=== PATIENT | female | born 1935 | race Caucasian/White ===

== ENCOUNTER 2018-01-02 17:58 | Inpatient (IN) | payer OTHER, MEDICARE ==
[2018-01-02 18:18] VITALS: BMI 25.8
[2018-01-02 19:37] LABS: BASO % 0.3 % (0-2.0); HEMATOCRIT 42.6 % (32.4-45.2); HEMOGLOBIN 14.1 GM/dL (10.7-15.3); LYMPH % 2.7 % (8-40); MCH 30.2 pg (25.7-33.7); MCHC 33.1 g/dl (32.0-36.0); MEAN CELL VOLUME 91.3 fl (80-96); MEAN PLT VOLUME 8.5 fl (7.5-11.1); PLATELET COUNT 199 K/MM3 (134-434); RBC 4.66 M/mm3 (3.60-5.2); RDW 14.6 % (11.6-15.6); WHITE BLOOD COUNT 23.2 K/mm3 (4.0-10.0)
[2018-01-02 19:43] LABS: VENOUS PC02 26.8 mmHg (38-52); VENOUS PH 7.47 (7.32-7.42); VENOUS PO2 45.1 mmHg (28-48)
[2018-01-02 19:49] LABS: INR 1.48 (0.82-1.09); PROTHROMBIN TIME (PATIENT) 16.7 SEC (9.98-11.88)
[2018-01-02 19:52] LABS: ACTIVATED PTT 22.7 SECONDS (26.9-34.4)
[2018-01-02 19:57] LABS: URINE APPEARANCE SLCLOUDY; URINE BILIRUBIN NEGATIVE (<2.0 mg/dL); URINE COLOR YELLOW; URINE GLUCOSE (UA) NEGATIVE (NEGATIVE); URINE KETONE NEGATIVE (NEGATIVE); URINE LEUK ESTERASE NEGATIVE (NEGATIVE); URINE NITRITE NEGATIVE (NEGATIVE); URINE PROTEIN NEGATIVE (NEGATIVE); URINE UROBILINOGEN NEGATIVE mg/dL (0.2-1.0)
[2018-01-02 20:00] LABS: ALBUMIN 2.9 g/dl (3.4-5.0); ALK PHOS 105 U/L (45-117); ANION GAP 9 (8-16); BLOOD UREA NITROGEN 40 mg/dL (7-18); CALCIUM 9.2 mg/dL (8.5-10.1); CHLORIDE 103 mmol/L (98-107); CO2 27 mmol/L (21-32); CREATININE 1.2 mg/dL (0.55-1.02); GLUCOSE,RANDOM 92 mg/dL (74-106); POTASSIUM 3.8 mmol/L (3.5-5.1); SGOT/AST 25 U/L (15-37); SGPT/ALT 43 U/L (12-78); SODIUM 139 mmol/L (136-145); TOT PROT 6.8 g/dl (6.4-8.2)
[2018-01-02] MEDS ORDERED: SODIUM CHLORIDE 0.9% 500 ML INFUS.BAG IV ONE (20:00)
[2018-01-02] MEDS ORDERED: PIPERACILLIN/TAZOB 4.5 GM 4.5 GM in DEXTROSE 5%-WATER 100 ML IVPB ONE (20:08)
[2018-01-02] MEDS ORDERED: VANCOMYCIN 1,000 MG in DEXTROSE 5%-WATER - 250 ML IVPB ONE (20:09)
[2018-01-02] MEDS ORDERED: dilTIAZem HCL 50 MG/10 ML - 10 ML VIAL IVPUSH ONE ×2 (20:11→20:35)
[2018-01-02] MEDS ORDERED: ACETAMINOPHEN INJECTION 100 ML IVPB ONE (20:16)
[2018-01-02] MEDS ORDERED: dilTIAZem HCL 125 MG/25 ML - 25 ML VIAL ONE ×2 (20:16→23:45)
[2018-01-02] MEDS ORDERED: ACETAMINOPHEN 1000 MG/100 ML VIAL (NON FORMULARY) IVPB ONE (20:21)
--- NOTE | 2018-01-02 20:44 | PDOC ---
History of Present Illness - General Chief Complaint: SIRS, Suspected/Possible Stated Complaint: SEPSIS Time Seen by Provider: 01/02/18 18:16 Past History - Past Medical History Allergies/Adverse Reactions: Allergies Allergy/AdvReac Type Severity Reaction Status Date / Time Sulfa (Sulfonamide Allergy Verified 01/02/18 18:06 Antibiotics) Home Medications: Ambulatory Orders Aricept 10 mg PO DAILY 05/29/17 Aspirin [Aspirin EC] 81 mg PO DAILY 05/29/17 Citalopram Hydrobromide [Celexa -] 10 mg PO DAILY 05/29/17 Furosemide [Lasix] 20 mg PO DAILY 05/29/17 Insulin Aspart [Novolog] 100 unit SQ PRN 05/29/17 Memantine HCl 10 mg PO DAILY 05/29/17 Metformin HCl 850 mg PO DAILY 05/29/17 Metoprolol Tartrate 12.5 mg PO BID 05/29/17 Potassium Chloride 10 meq PO DAILY 05/29/17 Spironolactone 25 mg PO DAILY 05/29/17 Cardiac Disorders: Yes (a fib) COPD: No CHF: Yes Dementia: Yes Diabetes: Yes (IDDM) GI Disorders: Yes (pancreatitis) HTN: Yes Hypercholesterolemia: Yes Other medical history: DNR - Surgical History Abdominal Surgery: Yes (pancreatic sx) Cholecystectomy: Yes - Suicide/Smoking/Psychosocial Hx Smoking History: Unknown if ever smoked Have you smoked in the past 12 months: No Information on smoking cessation initiated: No Hx Alcohol Use: No Drug/Substance Use Hx: No Substance Use Type: None *Physical Exam - Vital Signs Last Vital Signs Temp Pulse Resp BP Pulse Ox 100.2 F H 122 H 26 H 118/79 100 01/02/18 19:46 01/02/18 20:35 01/02/18 20:28 01/02/18 20:28 01/02/18 20:36 ED Treatment Course - LABORATORY CBC & Chemistry Diagram: 01/02/18 19:13 01/02/18 19:13 - ADDITIONAL ORDERS Additional order review: Laboratory Results 01/02/18 01/02/18 01/02/18 Unknown 19:20 19:15 PT with INR INR PTT (Actin FS) VBG pH 7.47 H POC VBG pCO2 26.8 L POC VBG pO2 45.1 Mixed VBG HCO3 19.3 Sodium Potassium Chloride Carbon Dioxide Anion Gap BUN Creatinine Creat Clearance w eGFR Random Glucose Lactic Acid 4.1 H* Calcium Total Bilirubin AST ALT Alkaline Phosphatase Creatine Kinase Troponin I Total Protein Albumin Urine Color Yellow Urine Appearance Slcloudy Urine pH 5.0 Ur Specific [place] 1.019 Urine Protein Negative Urine Glucose (UA) Negative Urine Ketones Negative Urine Blood Negative Urine Nitrite Negative Urine Bilirubin Negative Urine Urobilinogen Negative Ur Leukocyte Esterase Negative 01/02/18 01/02/18 01/02/18 19:13 19:13 19:13 PT with INR 16.70 H INR 1.48 H PTT (Actin FS) 22.7 L VBG pH POC VBG pCO2 POC VBG pO2 Mixed VBG HCO3 Sodium 139 Potassium 3.8 Chloride 103 Carbon Dioxide 27 Anion Gap 9 BUN 40 H Creatinine 1.2 H Creat Clearance w eGFR 42.80 Random Glucose 92 Lactic Acid Calcium 9.2 Total Bilirubin 1.0 AST 25 ALT 43 Alkaline Phosphatase 105 Creatine Kinase 38 Troponin I 0.19 H Total Protein 6.8 Albumin 2.9 L Urine Color Urine Appearance Urine pH Ur Specific [place] Urine Protein Urine Glucose (UA) Urine Ketones Urine Blood Urine Nitrite Urine Bilirubin Urine Urobilinogen Ur Leukocyte Esterase 01/02/18 19:13 RBC 4.66 MCV 91.3 MCHC 33.1 RDW 14.6 MPV 8.5 Neutrophils % 91.0 H Lymphocytes % 2.7 L Monocytes % 6.0 Eosinophils % 0.0 Basophils % 0.3 - Medications Given in the ED: ED Medications Discontinued Medications Generic Name Dose Route Start Last Admin Trade Name Freq PRN Reason Stop Dose Admin Acetaminophen 1,000 mg 01/02/18 20:21 01/02/18 20:21 Ofirmev Injection - IVPB 01/02/18 20:22 1,000 mg NOW ONE Administration Diltiazem HCl 10 mg 01/02/18 20:11 01/02/18 20:20 Cardizem Injection - IVPUSH 01/02/18 20:12 10 mg ONCE ONE Administration *DC/Admit/Observation/Transfer Diagnosis at time of Disposition: Sepsis Qualifiers: Sepsis type: sepsis due to unspecified organism Qualified Code(s): A41.9 - Sepsis, unspecified organism - Discharge Dispostion Admit: Yes - Referrals Referrals: Tia Juarez MD [Primary Care Provider] - - Patient Instructions - Post Discharge Activity
--- NOTE | 2018-01-02 20:45 | PN ---
Teaching Attending Note Name of Resident: Josh Lagunas ATTENDING PHYSICIAN STATEMENT I saw and evaluated the patient. I reviewed the resident's note and discussed the case with the resident. I agree with the resident's findings and plan as documented. SUBJECTIVE: 82 f w hx. of afib. dementia,htn, cad, who presents from [facility] presented with increased HR and elevated white count. Pt. Non-Verbal at bedside. Family not at bedside OBJECTIVE: Physical: VS: Vital Signs Period Temp Pulse Resp BP Sys/[place] Pulse Ox Last 24 Hr 97.3 F-100.2 F 78-166 18-28 118-128/79-112 100-100 GEN: NAD, Resting in bed, AA0X0, Non-Verbal HEENT: NCAT, PERRL, Throat without erythema or edema CARD: IRR S1, S2 RESP: CTAB ABD: Midline scar, Abdomen soft-non- distended, non-tender EXT: L. toes 2-3 erythmatous, gangrenous, with motteling upto right upper thigh. Pulses intact LE CBCD WBC 23.2 K/mm3 (4.0-10.0) H 01/02/18 19:13 RBC 4.66 M/mm3 (3.60-5.2) 01/02/18 19:13 Hgb 14.1 GM/dL (10.7-15.3) 01/02/18 19:13 Hct 42.6 % (32.4-45.2) 01/02/18 19:13 MCV 91.3 fl (80-96) 01/02/18 19:13 MCHC 33.1 g/dl (32.0-36.0) 01/02/18 19:13 RDW 14.6 % (11.6-15.6) 01/02/18 19:13 Plt Count 199 K/MM3 (134-434) 01/02/18 19:13 MPV 8.5 fl (7.5-11.1) 01/02/18 19:13 CMP Sodium 139 mmol/L (136-145) 01/02/18 19:13 Potassium 3.8 mmol/L (3.5-5.1) 01/02/18 19:13 Chloride 103 mmol/L (98-107) 01/02/18 19:13 Carbon Dioxide 27 mmol/L (21-32) 01/02/18 19:13 Anion Gap 9 (8-16) 01/02/18 19:13 BUN 40 mg/dL (7-18) H 01/02/18 19:13 Creatinine 1.2 mg/dL (0.55-1.02) H 01/02/18 19:13 Creat Clearance w eGFR 42.80 (>60) 01/02/18 19:13 Random Glucose 92 mg/dL (74-106) 01/02/18 19:13 Calcium 9.2 mg/dL (8.5-10.1) 01/02/18 19:13 Total Bilirubin 1.0 mg/dL (0.2-1.0) 01/02/18 19:13 AST 25 U/L (15-37) 01/02/18 19:13 ALT 43 U/L (12-78) 01/02/18 19:13 Alkaline Phosphatase 105 U/L (45-117) 01/02/18 19:13 Total Protein 6.8 g/dl (6.4-8.2) 01/02/18 19:13 Albumin 2.9 g/dl (3.4-5.0) L 01/02/18 19:13 CARDIAC ENZYMES Creatine Kinase 38 IU/L (26-192) 01/02/18 19:13 Troponin I 0.19 ng/ml (0.00-0.05) H 01/02/18 19:13 Urine Test Results Urine Color Yellow 01/02/18 Unknown Urine Appearance Slcloudy 01/02/18 Unknown Urine pH 5.0 (5.0-8.0) 01/02/18 Unknown Ur Specific [place] 1.019 (1.001-1.035) 01/02/18 Unknown Urine Protein Negative (NEGATIVE) 01/02/18 Unknown Urine Glucose (UA) Negative (NEGATIVE) 01/02/18 Unknown Urine Ketones Negative (NEGATIVE) 01/02/18 Unknown Urine Blood Negative (NEGATIVE) 01/02/18 Unknown Urine Nitrite Negative (NEGATIVE) 01/02/18 Unknown Urine Bilirubin Negative (<2.0 mg/dL) 01/02/18 Unknown Ur Leukocyte Esterase Negative (NEGATIVE) 01/02/18 Unknown CXR- NO Acute Process Ambulatory Orders Aricept 5 mg PO HS 05/29/17 Aspirin [Aspirin EC] 81 mg PO DAILY 05/29/17 Citalopram Hydrobromide [Celexa -] 10 mg PO DAILY 05/29/17 Furosemide [Lasix] 20 mg PO DAILY 05/29/17 Insulin Aspart [Novolog] unit SQ ASDIR PRN 05/29/17 Metformin HCl 850 mg PO DAILY 05/29/17 Metoprolol Tartrate 12.5 mg PO BID 05/29/17 Potassium Chloride 10 meq PO DAILY 05/29/17 Spironolactone 25 mg PO DAILY 05/29/17 Cyanocobalamin Vit B-12 Inj. [Redisol] 1,000 mcg IJ MONTHLY 01/02/18 Multivit-Min/Iron Fum/Folic AC [Tgfou-Evxvmhm-Vrevihqw Tablet] 1 each PO DAILY 01/02/18 Namenda - 10 mg PO BID 01/02/18 ASSESSMENT AND PLAN: 82 f w hx. of afib. dementia,htn, cad,who is presenting with severe sepsis 1.) Severe Sepsis- Unknown etiology, Possibly LLE cellulitis/gangrene - IVF Gentle, given in ED, Pt. as per living will does not want IV fluids - Floyd CX - Repeat LA - As per living will pt. does not want antibiotics - Vanco/Zosyn given in ED 2.) Afib - S/P Cardizem in ED - Rate Controlled - [id number] - Unknown why pt. is not on A/C- Lovenox 1kg/mg 3.) RUE Edema - Duplex 4.) LLE Cellulitis/Gangrene - ID consult if pt. wants abx 5.) HTN - BB 6.) CAD - C/W Home meds 7.) Dvt Ppx - Lovenox Place in Med-Tele
--- NOTE | 2018-01-02 20:52 | PDOC ---
History of Present Illness - General Chief Complaint: SIRS, Suspected/Possible Stated Complaint: SEPSIS Time Seen by Provider: 01/02/18 18:16 History Source: Patient - History of Present Illness Initial Comments: 01/02/18 20:54 82F with pmh of dementia, CHF, HTN, Afib, DM CAD, HLD,from [facility], noted to be diaphoretic, lethargic, poor appetite and distended andomen with pain on the left side. She was found to have a WBC of 23. Seen by Dr. Park who recorded T98, P91, R20 , BP of 96/65 97%O2 and FS of 98. Completed there one dose of zosyn 3.75. started NAcl .45% and Levoquin IV. Doesn't have her hearing aid and is very hard of hearing in addition of being very demented. Patient present with Daughter. Past History - Past Medical History Allergies/Adverse Reactions: Allergies Allergy/AdvReac Type Severity Reaction Status Date / Time Sulfa (Sulfonamide Allergy Verified 01/02/18 18:06 Antibiotics) Home Medications: Ambulatory Orders Aricept 5 mg PO HS 05/29/17 Aspirin [Aspirin EC] 81 mg PO DAILY 05/29/17 Citalopram Hydrobromide [Celexa -] 10 mg PO DAILY 05/29/17 Furosemide [Lasix] 20 mg PO DAILY 05/29/17 Insulin Aspart [Novolog] unit SQ ASDIR PRN 05/29/17 Metformin HCl 850 mg PO DAILY 05/29/17 Metoprolol Tartrate 12.5 mg PO BID 05/29/17 Potassium Chloride 10 meq PO DAILY 05/29/17 Spironolactone 25 mg PO DAILY 05/29/17 Cyanocobalamin Vit B-12 Inj. [Redisol] 1,000 mcg IJ MONTHLY 01/02/18 Multivit-Min/Iron Fum/Folic AC [Kdiuz-Uyxylsq-Bgrlsuba Tablet] 1 each PO DAILY 01/02/18 Namenda - 10 mg PO BID 01/02/18 Cardiac Disorders: Yes (a fib) COPD: No CHF: Yes Dementia: Yes Diabetes: Yes (IDDM) GI Disorders: Yes (pancreatitis) HTN: Yes Hypercholesterolemia: Yes Other medical history: DNR - Surgical History Abdominal Surgery: Yes (pancreatic sx) Cholecystectomy: Yes - Suicide/Smoking/Psychosocial Hx Smoking History: Unknown if ever smoked Have you smoked in the past 12 months: No Information on smoking cessation initiated: No Hx Alcohol Use: No Drug/Substance Use Hx: No Substance Use Type: None Review of Systems - Review of Systems Able to Perform ROS?: No (non-verbal) *Physical Exam - Vital Signs Last Vital Signs Temp Pulse Resp BP Pulse Ox 100.2 F H 122 H 26 H 118/79 100 01/02/18 19:46 01/02/18 20:35 01/02/18 20:28 01/02/18 20:28 01/02/18 20:36 - Physical Exam General Appearance: Yes: Severe Distress, Obese HEENT: positive: Other (flushed, face edematous) Respiratory/Chest: positive: Lungs Clear, Normal Breath Sounds. negative: Chest Tender, Respiratory Distress Cardiovascular: positive: Tachycardia, Irregularly Irregular Gastrointestinal/Abdominal: positive: Normal Bowel Sounds, Protuberent, Distended Extremity: positive: Other (edematous right upper limb. Mottled lower left extremity.) Neurologic: positive: Confused, Disoriented ED Treatment Course - LABORATORY CBC & Chemistry Diagram: 01/02/18 19:13 01/02/18 19:13 - ADDITIONAL ORDERS Additional order review: Laboratory Results 01/02/18 01/02/18 01/02/18 Unknown 19:20 19:15 WBC RBC Hgb Hct MCV MCH MCHC RDW Plt Count MPV Neutrophils % Lymphocytes % Monocytes % Eosinophils % Basophils % PT with INR INR PTT (Actin FS) VBG pH 7.47 H POC VBG pCO2 26.8 L POC VBG pO2 45.1 Mixed VBG HCO3 19.3 Sodium Potassium Chloride Carbon Dioxide Anion Gap BUN Creatinine Creat Clearance w eGFR Random Glucose Lactic Acid 4.1 H* Calcium Total Bilirubin AST ALT Alkaline Phosphatase Creatine Kinase Troponin I Total Protein Albumin Urine Color Yellow Urine Appearance Slcloudy Urine pH 5.0 Ur Specific [place] 1.019 Urine Protein Negative Urine Glucose (UA) Negative Urine Ketones Negative Urine Blood Negative Urine Nitrite Negative Urine Bilirubin Negative Urine Urobilinogen Negative Ur Leukocyte Esterase Negative 01/02/18 01/02/18 01/02/18 19:13 19:13 19:13 WBC RBC Hgb Hct MCV MCH MCHC RDW Plt Count MPV Neutrophils % Lymphocytes % Monocytes % Eosinophils % Basophils % PT with INR 16.70 H INR 1.48 H PTT (Actin FS) 22.7 L VBG pH POC VBG pCO2 POC VBG pO2 Mixed VBG HCO3 Sodium 139 Potassium 3.8 Chloride 103 Carbon Dioxide 27 Anion Gap 9 BUN 40 H Creatinine 1.2 H Creat Clearance w eGFR 42.80 Random Glucose 92 Lactic Acid Calcium 9.2 Total Bilirubin 1.0 AST 25 ALT 43 Alkaline Phosphatase 105 Creatine Kinase 38 Troponin I 0.19 H Total Protein 6.8 Albumin 2.9 L Urine Color Urine Appearance Urine pH Ur Specific [place] Urine Protein Urine Glucose (UA) Urine Ketones Urine Blood Urine Nitrite Urine Bilirubin Urine Urobilinogen Ur Leukocyte Esterase 01/02/18 19:13 WBC 23.2 H RBC 4.66 Hgb 14.1 Hct 42.6 MCV 91.3 MCH 30.2 MCHC 33.1 RDW 14.6 Plt Count 199 MPV 8.5 Neutrophils % 91.0 H Lymphocytes % 2.7 L Monocytes % 6.0 Eosinophils % 0.0 Basophils % 0.3 PT with INR INR PTT (Actin FS) VBG pH POC VBG pCO2 POC VBG pO2 Mixed VBG HCO3 Sodium Potassium Chloride Carbon Dioxide Anion Gap BUN Creatinine Creat Clearance w eGFR Random Glucose Lactic Acid Calcium Total Bilirubin AST ALT Alkaline Phosphatase Creatine Kinase Troponin I Total Protein Albumin Urine Color Urine Appearance Urine pH Ur Specific [place] Urine Protein Urine Glucose (UA) Urine Ketones Urine Blood Urine Nitrite Urine Bilirubin Urine Urobilinogen Ur Leukocyte Esterase 01/02/18 19:13 RBC 4.66 MCV 91.3 MCHC 33.1 RDW 14.6 MPV 8.5 Neutrophils % 91.0 H Lymphocytes % 2.7 L Monocytes % 6.0 Eosinophils % 0.0 Basophils % 0.3 - RADIOLOGY Radiology Studies Ordered: Category Date Time Status CHEST X-RAY PORTABLE* [RAD] Stat Radiology 01/02/18 18:17 Completed - Medications Given in the ED: ED Medications Discontinued Medications Generic Name Dose Route Start Last Admin Trade Name Freq PRN Reason Stop Dose Admin Acetaminophen 1,000 mg 01/02/18 20:21 01/02/18 20:21 Ofirmev Injection - IVPB 01/02/18 20:22 1,000 mg NOW ONE Administration Diltiazem HCl 10 mg 01/02/18 20:11 01/02/18 20:20 Cardizem Injection - IVPUSH 01/02/18 20:12 10 mg ONCE ONE Administration Medical Decision Making - Medical Decision Making 01/02/18 21:31 Patient septic, no obvious source at this time. WBC 23.2, Lactate 4.1 Chest xray: The heart size is enlarged. There is marked prominence of the central pulmonary arteries suspicious for pulmonary hypertension. The lung omalley are free of pulmonary infiltrates or pleural effusions. There is tortuosity and calcification of the thoracic aorta and degenerative arthritis of the thoracic spine. Swelling of right upper limb and face suspicious for DVT, possibly originating from left lower limb which is mottled. Patient's living will clearly states: * I do not want: cardiac resuscitation , mechanical respiration, tube feeding, artificial hydration, antibiotics. * I do want: maximum pain relief even if it may hasten my . I and Dr. Celis spoke to Dr. Juarez, the patient's pcp who states he was told by the patient's daughter, Folry, who is the Health Care Proxy, that she wished for her mother to receive fluids and antibiotics, in direct contradiction with the patient's living will. According to [place] Public Health Law Article 29-C Health Care Agents and Proxies, Paragraph 2982 on Rights and Duties of Agent: "[...] the agent shall make health care decisions: in accordance with the principal's wishes, [unless reasonably known]" I decided to hold off providing antibiotics to the patient and signed off patient to medicine team after explaining the situation to Dr. Moore who saw the patient for admission to telemetry. *DC/Admit/Observation/Transfer Diagnosis at time of Disposition: Severe sepsis Sepsis Qualifiers: Sepsis type: sepsis due to unspecified organism Qualified Code(s): A41.9 - Sepsis, unspecified organism - Discharge Dispostion Admit: Yes - Referrals Referrals: Tia Juarez MD [Primary Care Provider] - - Patient Instructions - Post Discharge Activity
[2018-01-02] MEDS: INSULIN SLIDING SCALE (NOVOLOG) 1 VIAL SQ SCH (21:52)
[2018-01-02] MEDS ORDERED: ENOXAPARIN NA (PORCINE) 80 MG/0.8 ML DISP.SYRIN SQ ONE (21:56)
[2018-01-02] MEDS ORDERED: INSULIN SLIDING SCALE (NOVOLOG) 1 VIAL SQ SCH (22:00)
[2018-01-02] MEDS: ENOXAPARIN NA (PORCINE) 80 MG/0.8 ML DISP.SYRIN SQ SCH (22:05)
--- NOTE | 2018-01-02 22:14 | PDOC ---
Attending Attestation - Resident Resident Name: SolomonGui - ED Attending Attestation I have performed the following: I have examined & evaluated the patient, The case was reviewed & discussed with the resident, I agree w/resident's findings & plan, Exceptions are as noted - HPI HPI: 01/02/18 22:10 82 yo fmabdoulaye JIMÉNEZ from [place] for sepsis -the pt is followed by Dr Michaels and I spoke with Dr Charmaine Park about this pt HPI Dr Michaels states he spoke with the health care proxy ,Flory Stallworth and at this time she wanted everything done except intubation and CPR so pt remains DNR and DNI. He sent her because he wanted to give zosyn and they did not have any at the facility cxr no infiltrates UA neg - Physicial Exam PE: 01/02/18 22:14 82 yo female in moderate distress with tachy at 162,febrile and diaphoretic head ncat lungs no crackles cvs tachycaria,irreg,irreg abd protuberant ext no rashes neuro nonverbal ,moving upper extremities - Medical Decision Making 01/02/18 22:16 Dr Moore attending to pt who has been admitted. Family has been notified of pt; s hospita;ization -LACTIC ACID > 6
--- NOTE | 2018-01-02 22:28 | HP ---
PCP: Dr. Park HISTORY OF PRESENT ILLNESS: Patient is an 82 yo demented, nonverbal F with a PMHx of HTN, CHF, A-fib, DM, CAD, HLD, presented from [facility], and was noted to be diophoretic, lethargic with poor appetite and a distended abdomen. Patient was also noted to be seen by Dr. Park who recorded Temp 98, P91, RR20, BP 96/ 65. As per patients living will, it is stated patient is DNR/DNI, with no Antibiotics or IV fluids. ER course was notable for: (1) HR 164 (rapid a-fib w RVR), Lactic acid 6.1, WBC 23.2 (2) Vanc, Zosyn in ER Recent Travel: n/a PAST MEDICAL HISTORY: per HPI Social History: Smoking: n/a Alcohol: n/a Drugs: n/a Family History: Allergies Sulfa (Sulfonamide Antibiotics) Allergy (Verified 01/02/18 18:06) HOME MEDICATIONS: Home Medications Medication Instructions Recorded Aricept 5 mg PO HS 05/29/17 Aspirin [Aspirin EC] 81 mg PO DAILY 05/29/17 Citalopram Hydrobromide [Celexa -] 10 mg PO DAILY 05/29/17 Furosemide [Lasix] 20 mg PO DAILY 05/29/17 Insulin Aspart [Novolog] unit SQ ASDIR PRN 05/29/17 Metformin HCl 850 mg PO DAILY 05/29/17 Metoprolol Tartrate 12.5 mg PO BID 05/29/17 Potassium Chloride 10 meq PO DAILY 05/29/17 Spironolactone 25 mg PO DAILY 05/29/17 Cyanocobalamin Vit B-12 Inj. 1,000 mcg IJ MONTHLY 01/02/18 [Redisol] Multivit-Min/Iron Fum/Folic AC 1 each PO DAILY 01/02/18 [Epgyj-Ecubfqo-Uneravov Tablet] Namenda - 10 mg PO BID 01/02/18 REVIEW OF SYSTEMS unable to obtain ROS PHYSICAL EXAMINATION Vital Signs - 24 hr 01/02/18 01/02/18 01/02/18 18:07 19:46 20:10 Temperature 97.3 F L 100.2 F H Pulse Rate 78 161 H Pulse Rate [ 166 H Apical] Respiratory 18 28 H 18 Rate Blood Pressure 118/79 Blood Pressure 128/112 [Right Arm] O2 Sat by Pulse 100 100 Oximetry (%) 01/02/18 01/02/18 01/02/18 20:28 20:35 20:36 Temperature Pulse Rate 122 H Pulse Rate [ 141 H Apical] Respiratory 26 H Rate Blood Pressure Blood Pressure 118/79 [Right Arm] O2 Sat by Pulse 100 100 100 Oximetry (%) 01/02/18 21:01 Temperature Pulse Rate Pulse Rate [ 131 H Apical] Respiratory 28 H Rate Blood Pressure Blood Pressure 149/85 [Right Arm] O2 Sat by Pulse 99 Oximetry (%) GENERAL: A/O x0, diaphoretic, nonverbal, lethargic HEAD: Normal with no signs of trauma. EYES: Pupils equal, round and reactive to light EARS, NOSE, THROAT: oropharynx clear without exudates. Moist mucous membranes. NECK: no JVD, or masses. LUNGS: Breath sounds equal, clear to auscultation bilaterally. HEART: tachy, irregularly irregular. ABDOMEN: distended, +bs, not grimacing to palpation, Midline scar UPPER EXTREMITIES: 2+ pulses, RUE edema. No LUE edema. LOWER EXTREMITIES: 1+ pulses, No peripheral edema. SKIN: Gangrenous Left 2nd and 3rd toes with erythema. Skin mottling up to b/l thighs. Laboratory Results - last 24 hr 01/02/18 01/02/18 01/02/18 19:13 19:13 19:13 WBC 23.2 H RBC 4.66 Hgb 14.1 Hct 42.6 MCV 91.3 MCH 30.2 MCHC 33.1 RDW 14.6 Plt Count 199 MPV 8.5 Neutrophils % 91.0 H Lymphocytes % 2.7 L Monocytes % 6.0 Eosinophils % 0.0 Basophils % 0.3 PT with INR 16.70 H INR 1.48 H PTT (Actin FS) 22.7 L VBG pH POC VBG pCO2 POC VBG pO2 Mixed VBG HCO3 Sodium 139 Potassium 3.8 Chloride 103 Carbon Dioxide 27 Anion Gap 9 BUN 40 H Creatinine 1.2 H Creat Clearance w eGFR 42.80 Random Glucose 92 Lactic Acid Calcium 9.2 Total Bilirubin 1.0 AST 25 ALT 43 Alkaline Phosphatase 105 Creatine Kinase 38 Troponin I Total Protein 6.8 Albumin 2.9 L Urine Color Urine Appearance Urine pH Ur Specific [place] Urine Protein Urine Glucose (UA) Urine Ketones Urine Blood Urine Nitrite Urine Bilirubin Urine Urobilinogen Ur Leukocyte Esterase 01/02/18 01/02/18 01/02/18 19:13 19:15 19:20 WBC RBC Hgb Hct MCV MCH MCHC RDW Plt Count MPV Neutrophils % Lymphocytes % Monocytes % Eosinophils % Basophils % PT with INR INR PTT (Actin FS) VBG pH 7.47 H POC VBG pCO2 26.8 L POC VBG pO2 45.1 Mixed VBG HCO3 19.3 Sodium Potassium Chloride Carbon Dioxide Anion Gap BUN Creatinine Creat Clearance w eGFR Random Glucose Lactic Acid 4.1 H* Calcium Total Bilirubin AST ALT Alkaline Phosphatase Creatine Kinase Troponin I 0.19 H Total Protein Albumin Urine Color Urine Appearance Urine pH Ur Specific [place] Urine Protein Urine Glucose (UA) Urine Ketones Urine Blood Urine Nitrite Urine Bilirubin Urine Urobilinogen Ur Leukocyte Esterase 01/02/18 Unknown WBC RBC Hgb Hct MCV MCH MCHC RDW Plt Count MPV Neutrophils % Lymphocytes % Monocytes % Eosinophils % Basophils % PT with INR INR PTT (Actin FS) VBG pH POC VBG pCO2 POC VBG pO2 Mixed VBG HCO3 Sodium Potassium Chloride Carbon Dioxide Anion Gap BUN Creatinine Creat Clearance w eGFR Random Glucose Lactic Acid Calcium Total Bilirubin AST ALT Alkaline Phosphatase Creatine Kinase Troponin I Total Protein Albumin Urine Color Yellow Urine Appearance Slcloudy Urine pH 5.0 Ur Specific [place] 1.019 Urine Protein Negative Urine Glucose (UA) Negative Urine Ketones Negative Urine Blood Negative Urine Nitrite Negative Urine Bilirubin Negative Urine Urobilinogen Negative Ur Leukocyte Esterase Negative Chest xray: The heart size is enlarged. There is marked prominence of the central pulmonary arteries suspicious for pulmonary hypertension. The lung omalley are free of pulmonary infiltrates or pleural effusions. There is tortuosity and calcification of the thoracic aorta and degenerative arthritis of the thoracic spine. ASSESSMENT/PLAN: 82 yo demented, nonverbal F with a PMHx of HTN, CHF, A-fib, DM, CAD, HLD, presented from [facility], and was found to be in severe sepsis. #Severe Sepsis from unknown etiology -possibly LLE cellulitis,gangrene -Blood culture, urine culture -Repeat Lactic acid -as per patient living will, patient does not want antibiotics, fluids. -As per ED note: Patient's living will clearly states: * I do not want: cardiac resuscitation , mechanical respiration, tube feeding, artificial hydration, antibiotics. * I do want: maximum pain relief even if it may hasten my . -Palliative team consulted -FU am labs #A-fib -[id number] -S/p 2x Cardizem in the ED -Rate controlled -Patient not on AG -Lovenox 70mg BID -cardiac monitoring #RUE edema -Venous duplex #JOSE -avoid nephrotoxins -FU am labs -fluids held at this time #LLE Cellulitis/Gangrene - ID consult if decision is made to give ABx. #HTN -cont. Metoprolol #DM -BGM -ISS #PPX -Lovenox Med-Tele Visit type - Emergency Visit Emergency Visit: Yes ED Registration Date: 01/02/18 Care time: The patient presented to the Emergency Department on the above date and was hospitalized for further evaluation of their emergent condition. - New Patient This patient is new to me today: Yes Date on this admission: 01/03/18 - Critical Care Critical Care patient: No Hospitalist Screening - Colonoscopy Questionnaire Colonoscopy Questionnaire: Colonoscopy Questionnaire - Patient: 50 - 75 years old and never had a screening colonoscopy: Unknown History of colon or rectal polyps, or CA: Unknown History of IBD, Crohn's disease or UC: Unknown History of abdominal radiation therapy as a child: Unknown - Relative: 1 with colon or rectal CA, or polyps at age 60 or younger: Unknown Colon or rectal CA diagnosed at age 45 or younger: Unknown Multiple relatives with colon or rectal CA: Unknown - Outcome: Screening Result: Negative Screen
[2018-01-03] MEDS ORDERED: morphine SULFATE 4 MG/ML VIAL IVPUSH ONE ×2 (02:08→02:18)
[2018-01-03] MEDS ORDERED: METOPROLOL TARTRATE 5 MG/5 ML VIAL IVPUSH ONE (02:09)
[2018-01-03] MEDS ORDERED: dilTIAZem HCL 50 MG/10 ML - 10 ML VIAL IVPUSH ONE (04:33)
[2018-01-03] MEDS: INSULIN SLIDING SCALE (NOVOLOG) 1 VIAL SQ SCH ×3 (05:59→16:55)
[2018-01-03 07:13] LABS: HEMATOCRIT 40.3 % (32.4-45.2); HEMOGLOBIN 13.3 GM/dL (10.7-15.3); MCH 30.2 pg (25.7-33.7); MCHC 32.9 g/dl (32.0-36.0); MEAN CELL VOLUME 91.5 fl (80-96); MEAN PLT VOLUME 8.6 fl (7.5-11.1); PLATELET COUNT 215 K/MM3 (134-434); RDW 15.2 % (11.6-15.6); WHITE BLOOD COUNT 19.4 K/mm3 (4.0-10.0)
[2018-01-03 07:38] LABS: INR 1.54 (0.82-1.09); PROTHROMBIN TIME (PATIENT) 17.4 SEC (9.98-11.88)
[2018-01-03 07:48] LABS: BILIRUBIN,TOTAL 0.8 mg/dL (0.2-1.0); TOT PROT 6.6 g/dl (6.4-8.2)
[2018-01-03 07:52] LABS: ALK PHOS 94 U/L (45-117)
[2018-01-03 08:14] LABS: ALBUMIN 2.7 g/dl (3.4-5.0); ANION GAP 11 (8-16); BLOOD UREA NITROGEN 47 mg/dL (7-18); CALCIUM 8.9 mg/dL (8.5-10.1); CHLORIDE 107 mmol/L (98-107); CO2 23 mmol/L (21-32); CREATININE 1.3 mg/dL (0.55-1.02); GLUCOSE,RANDOM 121 mg/dL (74-106); MAGNESIUM 2.3 mg/dL (1.8-2.4); SGOT/AST 60 U/L (15-37); SGPT/ALT 39 U/L (12-78); SODIUM 141 mmol/L (136-145)
[2018-01-03] MEDS: ENOXAPARIN NA (PORCINE) 80 MG/0.8 ML DISP.SYRIN SQ SCH (09:34)
--- NOTE | 2018-01-03 11:44 | EKG ---
Test Reason : Blood Pressure : / mmHG Vent. Rate : 119 BPM Atrial Rate : 416 BPM P-R Int : 000 ms QRS Dur : 094 ms QT Int : 332 ms P-R-T Axes : 000 -05 096 degrees QTc Int : 467 ms ATRIAL FIBRILLATION WITH RAPID VENTRICULAR RESPONSE WITH PREMATURE VENTRICULAR OR ABERRANTLY CONDUCTED COMPLEXES ABNORMAL QRS-T ANGLE, CONSIDER PRIMARY T WAVE ABNORMALITY ABNORMAL ECG WHEN COMPARED WITH ECG OF 02-JAN-2018 20:02, NONSPECIFIC T WAVE ABNORMALITY NO LONGER EVIDENT IN INFERIOR LEADS Confirmed by JOSIE GARZA MD ([id number]) on 01/03/2018 11:43:57 AM Referred By: Madeleine [place] Confirmed By:JOSIE GARZA MD
--- NOTE | 2018-01-03 11:45 | EKG ---
Test Reason : Blood Pressure : / mmHG Vent. Rate : 159 BPM Atrial Rate : 468 BPM P-R Int : 000 ms QRS Dur : 092 ms QT Int : 250 ms P-R-T Axes : 000 124 069 degrees QTc Int : 406 ms ATRIAL FIBRILLATION WITH RAPID VENTRICULAR RESPONSE WITH PREMATURE VENTRICULAR OR ABERRANTLY CONDUCTED COMPLEXES RIGHT AXIS DEVIATION NONSPECIFIC ST ABNORMALITY ABNORMAL ECG NO PREVIOUS ECGS AVAILABLE Confirmed by JOSIE GARZA MD ([id number]) on 01/03/2018 11:45:04 AM Referred By: Confirmed By:JOSIE GARZA MD
--- NOTE | 2018-01-03 11:58 | PN ---
Progress Note, Physician Chief Complaint: Restless yelling Events noted spoke with DR Michaels-- primary doctor at [facility] - Current Medication List Current Medications: Active Medications Enoxaparin Sodium (Lovenox -) 70 mg SQ BID [facility] Last Admin: 01/03/18 09:34 Dose: Not Given Insulin Aspart (Novolog Vial Sliding Scale -) 1 vial SQ ACHS [facility] PRN Reason: Protocol Last Admin: 01/03/18 05:59 Dose: Not Given - Objective Vital Signs: Vital Signs Temperature 99.0 F 01/03/18 07:22 Pulse Rate 122 H 01/03/18 07:22 Respiratory Rate 19 01/03/18 07:28 Blood Pressure 132/74 01/03/18 07:22 O2 Sat by Pulse Oximetry (%) 99 01/03/18 07:28 Constitutional: Yes: Moderate Distress Cardiovascular: Yes: Tachycardia, Pulse Irregular Respiratory: Yes: Diminished. No: Rales, Rhonchi Gastrointestinal: Yes: Soft, Abdomen, Obese, Tenderness (lower abdomen). No: Distention Edema: No Labs: CBC, BMP 01/03/18 06:16 01/03/18 06:16 INR, PTT INR 1.54 (0.82-1.09) H 01/03/18 06:16 Problem List - Problems (1) Dementia Code(s): F03.90 - UNSPECIFIED DEMENTIA WITHOUT BEHAVIORAL DISTURBANCE (2) Rapid atrial fibrillation Code(s): I48.91 - UNSPECIFIED ATRIAL FIBRILLATION (3) Sepsis Code(s): A41.9 - SEPSIS, UNSPECIFIED ORGANISM Qualifiers: Sepsis type: sepsis due to unspecified organism Qualified Code(s): A41.9 - Sepsis, unspecified organism Assessment/Plan PLAN per pt's living will , she does not want hydration, antibiotics, cardiac resuscitation, ventilator support Spoke with staff, DR Michaels , palliative care Family wishes for hospice care no further lab draws Hospice care Pt is DNR/DNI
[2018-01-03 12:10] LABS: ANISOCYTOSIS 0; PLATELET ESTIMATE NORMAL
[2018-01-03] MEDS ORDERED: LORazepam 2 MG/ML SDV VIAL IVPUSH PRN (16:44)
[2018-01-03] MEDS ORDERED: morphine SULFATE 4 MG/ML VIAL IVPUSH PRN (17:13)
[2018-01-03] MEDS: ACETAMINOPHEN 650 MG SUPP.RECT PR PRN (23:11)
[2018-01-04] MEDS: ACETAMINOPHEN 650 MG SUPP.RECT PR PRN (04:44)
[2018-01-04 05:11] VITALS: BP 132/86
--- NOTE | 2018-01-04 10:39 | DS ---
Physical Examination Vital Signs: Vital Signs Temperature 100.5 F H 01/04/18 05:10 Pulse Rate 162 H 01/04/18 05:10 Respiratory Rate 44 H 01/04/18 05:10 Blood Pressure 132/86 01/04/18 05:10 O2 Sat by Pulse Oximetry (%) 92 L 01/04/18 05:14 Labs: CBC, BMP 01/03/18 06:16 01/03/18 06:16 Discharge Summary Reason For Visit: SEPSIS Current Active Problems Dementia (Acute) Rapid atrial fibrillation (Acute) Sepsis (Acute) Hospital Course: pt admitted for rapid Afib and sepsis Pt on hospice - family wanted comfort care on 01/04-- 11:05AM - Instructions Referrals: Tia Juarez MD [Primary Care Provider] - Disposition: - Home Medications Comprehensive Discharge Medication List: Ambulatory Orders Aricept 5 mg PO HS 05/29/17 Aspirin [Aspirin EC] 81 mg PO DAILY 05/29/17 Citalopram Hydrobromide [Celexa -] 10 mg PO DAILY 05/29/17 Furosemide [Lasix] 20 mg PO DAILY 05/29/17 Insulin Aspart [Novolog] unit SQ ASDIR PRN 05/29/17 Metformin HCl 850 mg PO DAILY 05/29/17 Metoprolol Tartrate 12.5 mg PO BID 05/29/17 Potassium Chloride 10 meq PO DAILY 05/29/17 Spironolactone 25 mg PO DAILY 05/29/17 Cyanocobalamin Vit B-12 Inj. [Redisol] 1,000 mcg IJ MONTHLY 01/02/18 Multivit-Min/Iron Fum/Folic AC [Gjwyj-Mnclfnz-Jjwdxjvv Tablet] 1 each PO DAILY 01/02/18 Namenda - 10 mg PO BID 01/02/18
--- NOTE | 2018-01-04 10:51 | PN ---
Progress Note (short form) - Note Progress Note: lethargic secretions+ Vital Signs - 24 hr 01/03/18 01/03/18 01/03/18 13:50 17:00 22:00 Temperature 100 F H 98.5 F 98.9 F Pulse Rate 126 H 130 H 145 H Respiratory 18 20 20 Rate Blood Pressure 135/76 148/99 139/90 O2 Sat by Pulse Oximetry (%) 01/03/18 01/03/18 01/04/18 22:41 23:10 03:16 Temperature 102.4 F H 99.7 F H Pulse Rate Respiratory 20 Rate Blood Pressure O2 Sat by Pulse 96 Oximetry (%) 01/04/18 01/04/18 01/04/18 04:43 05:10 05:14 Temperature 100.1 F H 100.5 F H Pulse Rate 162 H Respiratory 44 H Rate Blood Pressure 132/86 O2 Sat by Pulse 92 L Oximetry (%) Current Medications Generic Name Dose Route Start Last Admin Trade Name Freq PRN Reason Stop Dose Admin Acetaminophen 650 mg 01/03/18 17:13 01/04/18 04:44 Tylenol Suppository - NV 650 mg Q6H PRN Administration FEVER Lorazepam 1 mg 01/04/18 10:50 Ativan Injection - IVPUSH Q4H PRN ANXIETY Morphine Sulfate 1 mg 01/03/18 17:13 01/03/18 19:55 Morphine Sulfate IVPUSH 1 mg Q4H PRN Administration PAIN LEVEL 4 - 6 Scopolamine HBr 1 patch 01/04/18 11:00 Transderm-Scop - TD Q72H ANTONIA Laboratory Results - last 24 hr 01/03/18 06:16 Neutrophils % (Manual) 84.0 H Band Neutrophils % 7.0 Lymphocytes % (Manual) 3.0 L Monocytes % (Manual) 2 L Eosinophils % (Manual) 0.0 Basophils % (Manual) 0.0 Myelocytes % (Man) 2 Promyelocytes % (Man) 1 Blast Cells % (Manual) 0 Nucleated RBC % 0 Metamyelocytes 0 Platelet Estimate Normal Poikilocytosis 0 Anisocytosis 0 S1 S2 Irregular - tachycardic Lungs ronchi Abd- soft, ND No edema PLAN -- comfort care -- pt is on hospice -- scopolamine pacth \-- Morphine iv and Ativan IV -- venti mask Problem List - Problems (1) Dementia Code(s): F03.90 - UNSPECIFIED DEMENTIA WITHOUT BEHAVIORAL DISTURBANCE (2) Rapid atrial fibrillation Code(s): I48.91 - UNSPECIFIED ATRIAL FIBRILLATION (3) Sepsis Code(s): A41.9 - SEPSIS, UNSPECIFIED ORGANISM Qualifiers: Sepsis type: sepsis due to unspecified organism Qualified Code(s): A41.9 - Sepsis, unspecified organism
[2018-01-04] MEDS ORDERED: morphine SULFATE 4 MG/ML VIAL IVPUSH SCH (11:00)
[2018-01-04] MEDS ORDERED: SCOPOLAMINE HYDROBROMIDE 1 PATCH PATCH.TD72 TD SCH (11:00)
--- NOTE | 2018-01-04 11:15 | PN ---
Progress Note (short form) - Note Progress Note: Informed by nurse that pt is unresponsive Examined pt vitals unable to be assessed Pupils were fixed and dilated No heart sound auscultated No breath sounds observed Pt pronounced at 11:05 AM today unable to get in touch with family members-- left messages on their voice mails Problem List - Problems (1) Dementia Code(s): F03.90 - UNSPECIFIED DEMENTIA WITHOUT BEHAVIORAL DISTURBANCE (2) Rapid atrial fibrillation Code(s): I48.91 - UNSPECIFIED ATRIAL FIBRILLATION (3) Sepsis Code(s): A41.9 - SEPSIS, UNSPECIFIED ORGANISM Qualifiers: Sepsis type: sepsis due to unspecified organism Qualified Code(s): A41.9 - Sepsis, unspecified organism
[2018-01-04 15:44] VITALS: PULSE 160; TEMP 100.8
== END 2018-01-04 11:05 | disposition expired | DRG 871 ==
LOC: JER 17:58 → JERBED 20:52 → J4W 01-03 00:47 → J4S 01-04 05:05
PROVIDERS: ADMIT Internal Medicine; ATTEND Internal Medicine
DX: A41.9 Sepsis, unspecified organism (principal); R53.2 Functional quadriplegia; L03.116 Cellulitis of left lower limb; I96 Gangrene, not elsewhere classified; N17.9 Acute kidney failure, unspecified; E87.2 Acidosis; Z66 Do not resuscitate; I11.0 Hypertensive heart disease with heart failure; I50.9 Heart failure, unspecified; E11.9 Type 2 diabetes mellitus without complications; I48.91 Unspecified atrial fibrillation; I25.10 Atherosclerotic heart disease of native coronary artery without angina pectoris; E78.5 Hyperlipidemia, unspecified; F03.90 Unspecified dementia, unspecified severity, without behavioral disturbance, psychotic disturbance, mood disturbance, and anxiety; Z51.5 Encounter for palliative care; H91.93 Unspecified hearing loss, bilateral; Z79.4 Long term (current) use of insulin; E66.9 Obesity, unspecified; Z68.25 Body mass index [BMI] 25.0-25.9, adult; R65.20 Severe sepsis without septic shock; R45.1 Restlessness and agitation
CPT/HCPCS: 36415; 71045-TC-FY; 80053; 81003; 82550; 82803; 82962; 83605; 83735; 84100; 84484; 85025; 85610; 85730; 87040; 87086; 93005; 93010; 93971; 99285-25; J0131